=== PATIENT | male | born 1960 | race Caucasian/White ===

== ENCOUNTER 2017-12-09 07:08 | Outpatient (CLI) | payer BC ==
[2014-03-13 14:42] VITALS: BP 150/83
[2017-12-09 08:18] LABS: eGFR (African) > 60; eGFR (Non-African) > 60
== END 2017-12-09 07:10 ==
LOC: LAB 07:08
PROVIDERS: ATTEND Family Medicine
DX: I10 Essential (primary) hypertension (principal)
CPT/HCPCS: 36415; 80053; 80061